=== PATIENT | male | born 1945 | race Caucasian/White ===

== ENCOUNTER 2017-02-16 06:26 | Outpatient (CLI) | payer MEDICARE, OTHER ==
[~2017-02-16] VITALS: Ht 177.8 cm; Wt 64.3 kg
--- NOTE | ~2017-02-16 | CATH ---
Cardiac Diagnostic + PCI Report Demographics Patient Name PARVIZ Flores Gender Male Date of 1945 Age 71 year(s) Patient Number [id number] Date of Study 02/16/2017 Visit Number [id number] Room Number G6[address] [place] [id number] Ht 177.8 cm Wt 64.3 kg Referring Younger Stephan Primary Physician Physician Performing Efstratiou Secondary Physician Physician Ramses Heredia MD Diagnostic Efstratiou Assisting Physician Physician Ramses Heredia MD Interventional Efstratiou Physician Gaming Cage Cashier Physician Ramses Heredia MD Findings and Conclusions Diagnostic Findings and Conclusion 1. 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 Mild disease in Circumflex Diagnostic Recommendations 1. PCI to RCA and LAD Interventional Findings and Conclusion Successful MIRNA to RCA and LAD Interventional Recommendations 1. DAPT 2. Statin Procedure Description The patient was brought to the diagnostic cardiac catheterization-EP laboratory in the fasting, non-sedated state. Informed consent was obtained in the written and verbal form after the risks and benefits were explained. The patient had no further questions and agreed to proceed. The planned puncture-incision site(s) were shaved and prepped with ChloraPrep and draped in the usual sterile manner. Conscious sedation, supplemental oxygen, and pain control medications were delivered by a registered nurse under physician guidance. Surface ECG rhythm, blood pressure measurement, and pulse oximetry were monitored throughout the procedure. Arterial access. The access site was infiltrated with lidocaine. The vessel was entered with the Seldinger technique. A sheath was advanced into the vessel and used for catheter placement. Selective left coronary angiography. A catheter was advanced into the left coronary vessel ostium under Fluoroscopic guidance. Contrast was injected by hand. Images were obtained in multiple projections. Selective right coronary angiography. A catheter was advanced into the right coronary vessel ostium under fluoroscopic guidance. Contrast was injected by hand. Images were obtained in multiple projections. Angioplasty and Stent Placement LAD : A guiding catheter was used to intubate the vessel. A 0.14 wire was then used to cross the lesion. A balloon catheter was placed across the lesion and inflated. The balloon catheter was then removed. A Drug Eluting Stent was placed and inflated. Post placement angiograms were performed. Angioplasty and Stent Placement RCA: A guiding catheter was used to intubate the vessel. A 0.14 wire was then used to cross the lesion. A balloon catheter was placed across the lesion and inflated. The balloon catheter was then removed. A Drug Eluting Stent was placed and inflated. Post placement angiograms were performed. Arterial artery hemostasis was achieved. The patient was transferred to a regular nursing floor via cart accompanied by a nurse. The patient left the laboratory in stable condition. Interventional Cath Status: Elective Procedure Procedure Type Diagnostic procedure:Angiography:, Coronary Angios PCI procedure:Drug Eluting Coronary Stent:, LAD, RCA Indications: Non-sustained VTach. The procedure was explained in detail to the patient. Risks, complications and alternative treatments were reviewed. Written consent was obtained. Medications Reviewed with Patient prior to Procedure. Angiographic Findings Dominance: Right Cardiac Arteries and Lesion Findings LMCA: Normal (0% Stenosis). LAD: Lesion on Mid LAD: Mid subsection.75% stenosis 16 mm length reduced to 0%. Pre procedure PATEL III flow was noted. Post Procedure PATEL III flow was present. The guidewire cross was successful.The lesion was diagnosed as a moderate risk lesion.Culprit lesion. Treatment results:Interventional treatment was successful. Devices used - Whisper Wire .014 x 190. Number of passes: 1. - NC Emerge Balloon 3.0 x 12. 3 inflation(s) to a max pressure of: 18 danny. - Promus Premier 3.5 x 16 Stent. 1 inflation(s) to a max pressure of: 18 danny. - NC Emerge Balloon 4.0 x 8. 4 inflation(s) to a max pressure of: 16 danny. Lesion on 1st Diag: Ostial.20% stenosis . LCx: OM patent Lesion on Mid CX: Mid subsection.20% stenosis . RCA: Lesion on Prox RCA: Proximal subsection.80% stenosis 38 mm length reduced to 0%. Pre procedure PATEL III flow was noted. Post Procedure PATEL III flow was present. The guidewire cross was successful.The lesion was diagnosed as a moderate risk lesion.Culprit lesion. Treatment results:Interventional treatment was successful. Devices used - Whisper Wire .014 x 190. Number of passes: 1. - Angiosculpt Balloon 3.0 x 10. Diameter: 3 mm. Length: 10 mm. 2 inflation(s) to a max pressure of: 18 danny. - NC Emerge Balloon 3.0 x 12. 2 inflation(s) to a max pressure of: 20 danny. - Promus Premier 4.0 x 38 Stent. 1 inflation(s) to a max pressure of: 14 danny. - Promus Premier 4.0 x 20 Stent. 2 inflation(s) to a max pressure of: 20 danny. - NC Emerge Balloon 4.5 x 12. 7 inflation(s) to a max pressure of: 20 danny. Lesion on 1st RPL: Proximal subsection.20% stenosis . Coronary Tree Procedure Data Procedure Date Date: 02/16/2017Start: 11:15 AMEnd: 12:31 PM Entry Locations - Retrograde Percutaneous access was performed through the Right Radial artery. A 6 Fr sheath was inserted. Hemostasis was successfully obtained using Mechanical Compression. Closure Comments: 15mL air in R band placed by RT. Linda. Procedure Medications Order and Administration + + +--------+-------+ !Time !Medication !Dosage !Route ! + + +--------+-------+ !02/16/2017 !Versed !1 mg !I.V. ! !11:13 AM ! ! ! ! + + +--------+-------+ !02/16/2017 !Fentanyl !50 mcg ! ! !11:13 AM ! ! ! ! + + +--------+-------02/16/2017 !PAE Radial Cocktail: Heparin 5000 units, ! !I.A. ! !11:18 AM !Nitroglycerin 200mcg, Verapamil 3 mg ! ! ! ! !(ACC_3) ! ! ! + + +--------+-------02/16/2017 !Heparin (ACC_3) !3000 !I.V. ! !11:25 AM ! !units ! ! + + +--------+-------+ 02/16/2017 !Heparin (ACC_3) !3000 !I.V. ! !11:34 AM ! !units ! ! + + +--------+-------02/16/2017 !Integrilin (ACC_7) !20 mg !I.C. ! !11:36 AM ! ! ! ! + + +--------+-------02/16/2017 !Fentanyl !25 mcg !I.V. ! !12:10 PM ! ! ! ! + + +--------+-------+ !02/16/2017 !Laytonilinta (Ticagrelor) (ACC_20) !180 mg !P.O. ! !12:21 PM ! ! ! ! + + +--------+-------+ Devices Used - A6 Fr. BS JR 4 Diag. Catheterwas used for:Right coronary angiography. - A6 Fr. BS JL 3.5 Diag. Catheterwas used for:Left coronary angiography. - A6 Fr. XBLAD 3.5 Guide Catheterwas used for:LAD Intervention.Unable to cannulate the vessel. - A6 Fr. EBU 3.75 Guide Catheterwas used for:LAD Intervention. - A6 Fr. HS Guide Catheterwas used for:RCA Intervention. Contrast Material - Isovue [id number] ml Fluoroscopy Time: Diagnostic: 22:30 minutes. Total: 22:30 minutes. Fluoroscopy Dose: Diagnostic: 875 mGy. Total: 875 mGy. Estimated Blood Loss: [address] [facility] PCI Information PCI Indication:PCI for high risk Non-STEMI or unstable angina. Medical History Allergies - No known allergies. Risk Factors The patient risk factors include:last creatinine: 1 mg/dl, creatinine clearance: 59.83 ml/min and former tobacco use. Admission Data Admission Date: 02/16/2017 Admission Time: 06:26 AM Admit Source: Other Insurance Payors: Medicare. Admission Medications + +------+-------+ + + + + !Medication !Dosage!Times !Last !Last !Administered !Comments ! ! ! !Per Day!Delivery !Delivery ! ! ! ! ! ! !Date !Time ! ! ! + +------+-------+ + + + + !Aspirin ! ! ! ! !Yes ! ! !(any) ! ! ! ! ! ! ! + +------+-------+ + + + + !Non-Statin ! ! ! ! !Yes ! ! !(any) ! ! ! ! ! ! ! + +------+-------+ + + + + Clinical Evaluation Leading to Procedure - There were no CAD presentation symptoms. - There were no anginal symptoms. Snapshots Hemodynamics Condition: Rest O2 Consumption: Estimated: 222.17Heart Rate: 92 bpm Pressures (mmHg) +-----+ + !Site !Pressure ! +-----+ + !AO !103/59 (80) ! +-----+ + Shunts Oxygen Values O2 Capacity 186.32 O2 Consumption 222.17 Discharge Data Discharge Date: 02/17/2017 Hospital Status: Outpatient Signatures dtt: Erik Taylor dtd: 02/16/17 1115 Physician Self Edit
[~2017-02-16 06:26] MED LIST: ASPIRIN (CHILDR81 MG PO; GLUCOSAMINE H1500 MG PO; KRILL OIL 5001 EACH PO
[2017-02-16 07:19] LABS: BASOPHIL # 0.1 K/uL (0.0-0.2); BASOPHIL % 0.9 %; EOSINOPHIL # 0.7 K/uL (0.0-0.5); EOSINOPHIL % 8.7 %; HEMATOCRIT 41.4 % (37.0-53.0); HEMOGLOBIN 13.7 g/dL (11.0-16.0); IMMATURE GRANULOCYTE % 0.2 %; LYMPHOCYTE # 1.4 K/uL (0.8-4.0); LYMPHOCYTE % 17.4 %; MCH 28.3 pg (27.0-34.0); MCHC 33.1 gm/dL (32.0-36.5); MCV 85.5 fl (83.0-98.0); MONOCYTE # 0.7 K/uL (0.0-1.0); MPV 9.8 fl (9.4-12.4); NEUTROPHIL # (ANC) 5.3 K/uL (1.4-9.0); NEUTROPHIL % 63.8 %; NRBC % 0 /100WBC (0-0.00); PLATELET COUNT 243 K/uL (150-450); RBC 4.84 M/uL (3.50-5.50); RDW-CV 14.1 % (11.9-14.6); WBC 8.2 K/uL (4.0-11.0)
[2017-02-16 07:29] LABS: INR - (THERAPEUTIC) 1.02 (0.92-1.07); PROTIME 10.7 SECONDS (9.8-11.4); PTT 32 SECONDS (25-32)
[2017-02-16 07:34] LABS: ALBUMIN 3.3 gm/dL (3.5-5.0); ALK PHOS 69 IU/L (33-138); ALT 17 IU/L (12-78); ANION GAP 9.9 (10.0-19.0); AST 15 IU/L (10-40); BLOOD UREA NITROGEN 12 mg/dL (6-24); CALCIUM 8.4 mg/dL (8.5-10.5); CHLORIDE 109 mMol/L (96-110); CO2 26 mMol/L (22-32); POTASSIUM 3.9 mMol/L (3.7-5.1); SODIUM 141 mMol/L (135-145); TOTAL BILIRUBIN 0.6 mg/dL (0.0-1.5); TOTAL PROTEIN 6.6 g/dL (6.0-8.4)
[2017-02-16 07:44] LABS: ESTIMATED GFR (MDRD EQUATION) > 60
[2017-02-16 13:52] LABS: CPK 102 IU/L (35-332)
[2017-02-17 07:22] LABS: ALBUMIN 3.1 gm/dL (3.5-5.0); ALK PHOS 71 IU/L (33-138); ALT 13 IU/L (12-78); AST 15 IU/L (10-40); BLOOD UREA NITROGEN 13 mg/dL (6-24); CALCIUM 8.3 mg/dL (8.5-10.5); CHLORIDE 107 mMol/L (96-110); CO2 25 mMol/L (22-32); CREATININE 0.9 mg/dL (0.6-1.3); ESTIMATED GFR (MDRD EQUATION) > 60; SODIUM 139 mMol/L (135-145); TOTAL BILIRUBIN 0.7 mg/dL (0.0-1.5); TOTAL PROTEIN 6.5 g/dL (6.0-8.4)
[2017-02-17] MEDS ORDERED: LIPITOR80 MG PO (09:02)
[2017-02-17] MEDS ORDERED: BRILINTA90 MG PO (09:04)
== END 2017-02-17 10:05 | disposition disaster alternative care site (69) ==
LOC: GPCU 06:26 → GNTU 06:26 → GCAT 06:26 → GPOC 07:00 → GPCU 14:41 → GCAT 02-17 10:05
PROVIDERS: Internal Medicine Cardiovascular Disease
PROC: 027136Z Dilation of Coronary Artery, Two Arteries with Three Drug-eluting Intraluminal Devices, Percutaneous Approach (ICD-10-PCS; principal; 2017-02-16)
PROC: B2111ZZ Fluoroscopy of Multiple Coronary Arteries using Low Osmolar Contrast (ICD-10-PCS; principal; 2017-02-16)
DX: I25.10 Atherosclerotic heart disease of native coronary artery without angina pectoris (principal); I47.2 Ventricular tachycardia; Z87.891 Personal history of nicotine dependence; Z87.442 Personal history of urinary calculi; Z79.82 Long term (current) use of aspirin; Z79.899 Other long term (current) drug therapy
CPT/HCPCS: C1725; C1769; C1874; C1876; C1887; C1894; C9600; J1327; J1644; J2250; J3010; J7030